=== PATIENT | male | born 1975 | race Caucasian/White ===

== ENCOUNTER 2016-04-15 21:09 | Emergency (ER) | payer MEDICARE, MEDICAID ==
[2016-04-15 21:23] VITALS: BP 140/89
[2016-04-15] MEDS ORDERED: AMOX TR/POTASSIUM CLAVULANATE 875 MG TABLET PO ONE (22:54)
[2016-04-15] MEDS ORDERED: AMOX TR/POTASSIUM CLAVULANATE 875 MG TABLET ONE (22:56)
--- NOTE | 2016-04-15 22:56 | ERNOTE ---
ENT HPI Presenting Symptoms: dental pain Time Seen by Provider: 04/15/16 22:45 Source: patient Exam Limitations: no limitations - Immun/Allergies/Home Medications Immunizations: IMMUNIZATION HX Immunizations Up to Date No History of Influenza Vaccine No Hx Pneumococcal Vaccination No Allergies/Adverse Reactions: Allergies Allergy/AdvReac Type Severity Reaction Status Date / Time No Known Allergies Allergy Unverified 04/15/16 21:17 Home Medications: HOME MEDICATIONS Amox Tr/Potassium Clavulanate [Augmentin 875-125 Tablet] 875 mg PO Q12H #20 tab 04/15/16 [Last Taken Unknown] Lurasidone HCl [Latuda] 120 mg PO DAILY 04/15/16 [Last Taken Unknown] - History of Present Illness Narrative: has been on antibiotics for a week as his dentist has been repairing his left upper canine. he continues to have pain and swelling Severity: Present: mild ENT Location: Present: dental Prearrival Treatment: Present: prescription meds Prior Treament: Reports: recently seen, treated by physician, currently on antibiotics Review of Systems - Review of Systems Constitutional: Absent: recent illness, fever EYE: Present: no symptoms reported ENT: Absent: sore throat, throat swelling Respiratory: Present: no symptoms reported Cardiology: Present: no symptoms reported Gastrointestinal/Abdominal: Present: no symptoms reported Genitourinary: Present: no symptoms reported Musculoskeletal: Present: no symptoms reported Skin: Present: rash Neurological: Present: no symptoms reported Endocrine: Present: no symptoms reported Hematologic/Lymphatic: Present: no symptoms reported - Patient's Past Medical History Patient History - Medical: Seizures, Other Patient History - Cancer: No Hx of Cancer Patient History - Surgical Procedures: No surgical history - Social History Living Situations: alone Smoking Status: Current every day smoker Patient requests Smoking Cessation Consult: No Initiate information on Smoking Cessation: No Alcohol Use: none Drug Use: none Physical Exam - Physical Exam General Appearance: Present: wd/wn, alert, no apparent distress Ears, Nose, Throat: Present: other - gingiva above the left upper canine is slightly erythematous, no fluctuance or specific swelling Neck: Present: normal inspection, nontender. Absent: lymphadenopathy (R), lymphadenopathy (L) Respiratory: Present: no respiratory distress, no accessory muscle use ED Progress - Vital Signs Vital Signs: Vital Signs 04/15/16 21:19 Temperature 36.9 C Pulse Rate 90 Respiratory 18 Rate Blood Pressure 140/89 O2 Sat by Pulse 98 Oximetry - Progress/Reassessment Chief Complaint: Dental Problem Progress:: Unchanged Departure Clinical Impression: Dental infection - Departure Disposition: Home Follow Up Needed Condition: Good Instructions: Dental Abscess, [id number] Prescriptions: Amox Tr/Potassium Clavulanate [Augmentin 875-125 Tablet] 875 mg PO Q12H #20 tab
== END 2016-04-15 22:59 | disposition home or self-care (01) ==
LOC: ER 21:09
DX: K04.7 Periapical abscess without sinus (principal); F17.210 Nicotine dependence, cigarettes, uncomplicated

== ENCOUNTER 2016-07-12 16:26 | Emergency (ER) | payer MEDICARE, MEDICAID ==
[2016-07-12 16:26] VITALS: BP 140/89
--- NOTE | 2016-07-12 17:09 | ERNOTE ---
ENT HPI Date of Service: 07/12/16 Presenting Symptoms: dental pain Time Seen by Provider: 07/12/16 17:00 Source: patient Exam Limitations: no limitations - Immun/Allergies/Home Medications Immunizations: IMMUNIZATION HX Immunizations Up to Date No History of Influenza Vaccine No Hx Pneumococcal Vaccination No Allergies/Adverse Reactions: Allergies Allergy/AdvReac Type Severity Reaction Status Date / Time No Known Allergies Allergy Verified 07/12/16 16:54 Home Medications: HOME MEDICATIONS Lurasidone HCl [Latuda] 120 mg PO DAILY 04/15/16 [Last Taken Unknown] Amox Tr/Potassium Clavulanate [Augmentin 500-125 Tablet] 500 mg PO TID #30 tab 07/12/16 [Last Taken Unknown] Lidocaine HCl [Lidocaine HCl Viscous 2%] 1 appl TP Q1H PRN #200 ml 07/12/16 [ Last Taken Unknown] Sulindac 200 mg PO BID #20 tab 07/12/16 [Last Taken Unknown] - History of Present Illness Narrative: One and a half days ago, a filling fell out. at 4 AM today, began to have pain with that tooth. No fever chills or sweats. Wants Augmentin and pain medicine. Severity: Present: moderate ENT Location: Present: dental Prearrival Treatment: Present: over the counter meds Modifying Factors - Improves: Reports: nothing Modifying Factors - Worsens: Reports: heat, cold, other - touching Associated Symptoms - ENT: Reports: denies symptoms Prior Treament: Reports: similar symptoms before. Denies: currently on antibiotics Review of Systems - Review of Systems Constitutional: Present: no symptoms reported EYE: Present: no symptoms reported ENT: Present: See HPI Respiratory: Present: no symptoms reported Cardiology: Present: no symptoms reported Gastrointestinal/Abdominal: Present: no symptoms reported Genitourinary: Present: no symptoms reported Musculoskeletal: Present: no symptoms reported Skin: Present: no symptoms reported Neurological: Present: no symptoms reported Endocrine: Present: no symptoms reported - Patient's Past Medical History Patient History - Medical: No pertinent hx, Seizures Patient History - Cardiac/Respiratory: No pertinent hx Patient History - Cancer: No Hx of Cancer Patient History - Surgical Procedures: No surgical history Patient History - Other: None - Social History Living Situations: alone Abuse History: No History of abuse Psych History: Psychiatric Hx, Hx of Schizophrenia Smoking Status: Current every day smoker Alcohol Use: occasionally Drug Use: none - Immunizations Immunizations Up to Date: No Hx Pneumococcal Vaccination: No History of Influenza Vaccine: No Physical Exam - Physical Exam General Appearance: Present: wd/wn, alert, no apparent distress Eye Exam: Normal inspection: bilateral, PERRL: bilateral, EOMI: bilateral Ears, Nose, Throat: Present: normal ENT inspection, other - abscess forming, anterior tooth to the left, maxillary Neck: Present: normal inspection, nontender. Absent: lymphadenopathy (R), lymphadenopathy (L) Respiratory: Present: no respiratory distress, normal breath sounds Cardiovascular/Chest: Present: regular rate, rhythm, no murmur Extremity Exam: Present: normal inspection, no edema Neurological Exam: Present: alert, oriented, normal mood/affect Skin Exam: Present: normal color, warm/dry ED Progress - Vital Signs Patient's Vital Signs:: I have reviewed the patient's vital signs. Vital Signs: Vital Signs 07/12/16 16:43 Temperature 36.9 C Pulse Rate 74 Respiratory 16 Rate O2 Sat by Pulse 95 Oximetry - Progress/Reassessment Chief Complaint: Dental Problem Departure Clinical Impression: Dental infection - Departure Disposition: Home self-care Condition: Good Instructions: Dental Abscess, [id number] Additional Instructions: Call your dentist on Thursday morning, make an appt, go see him. Prescriptions: Amox Tr/Potassium Clavulanate [Augmentin 500-125 Tablet] 500 mg PO TID #30 tab Lidocaine HCl [Lidocaine HCl Viscous 2%] 1 appl TP Q1H PRN #200 ml PRN Reason: tooth pain Sulindac 200 mg PO BID #20 tab
--- OUTSIDE RECORDS SUMMARY | 2016-07-12 17:19 | XMS REPORT | Continuity of Care Document ---
:1975 Author Organization [facility] Address Unavailable [place] [id number] Care Team Providers Name Role Phone Danay Ventura Primary Care Provider [phone] Source Comments This disclosure is being made pursuant to the [employer] program and maynot contain all information available regarding this patient.[facility] Active Allergies and Adverse Reactions Not on File Current Medications Be aware that medications may not be up to date as of this document. Alwaysverify current medications with the patient. Not on file Active Problems Not on file Immunizations Name Dates Previously Given Next Due Tdap 06/26/2010 Social History Tobacco Use Types Packs/Day Years Used Date Former Smoker Last Filed Vital Signs Vital Sign Reading Time Taken Blood Pressure 120/90 04/23/2011 10:00 AM [employer] Pulse 80 04/23/2011 10:00 AM [employer] Temperature 36 C (96.8 F) 04/23/2011 10:00 AM [employer] Respiratory Rate 16 04/23/2011 10:00 AM [employer] Height 1.715 m (5' 7.5") 04/23/2011 10:00 AM [employer] Weight 81.647 kg (180 lb) 04/23/2011 10:00 AM [employer] Body Mass Index 27.76 04/23/2011 10:00 AM [employer] Oxygen Saturation - - Plan of Care Health Maintenance Due Date Last Done Comments Retired-INFLUENZA VACCINE 12/05/2014 Retired-Tetanus Vaccine Adult 06/26/2020 06/26/2010 Retired-Pertussis Vaccine Adult Completed 06/26/2010 Results from Last 3 Months Not on file
== END 2016-07-12 17:14 | disposition home or self-care (01) ==
LOC: ER 16:26
DX: K04.7 Periapical abscess without sinus (principal)